=== PATIENT | male | born 1965 | race Caucasian/White ===

== ENCOUNTER 2016-06-11 14:16 | Emergency (ER) | payer MEDICARE ==
[~2016-06-11] VITALS: Ht 182.8 cm; Wt 87.5 kg
[~2016-06-11 14:16] MED LIST: HYDR25T PO; HYDROCHLOROTHIA25 M1 PO; HYDROCODONE BIT1 T11 PO; KEFLEX500 MG PO; LISINOPRIL2.5 MG PO; METFORMIN500 MG PO; VICODIN 500 MG-1 TAB PO; ZOCOR20 MG PO
[2016-06-11] MEDS ORDERED: HYDROCODONE BIT1 T11 PO (16:36)
== END 2016-06-11 16:36 | disposition home or self-care (01) ==
LOC: ED 14:16
DX: M25.552 Pain in left hip (principal); F12.10 Cannabis abuse, uncomplicated; F17.200 Nicotine dependence, unspecified, uncomplicated; Z79.899 Other long term (current) drug therapy; Z88.0 Allergy status to penicillin

== ENCOUNTER 2017-02-18 09:23 | Inpatient (IN) | payer MEDICARE ==
[~2017-02-18] VITALS: Ht 182.8 cm; Wt 90.7 kg
[2017-02-18 09:30] VITALS: BP 153/98
[2017-02-18 10:12] LABS: BASO % 0.3 % (0.0-1.0); EOS # 0.1 10*3/uL (0.0-0.4); EOS % 0.9 % (1.0-4.0); HEMATOCRIT 49.5 % (42.0-52.0); HEMOGLOBIN 17.8 g/dl (14.0-18.0); LYMPH # 2.1 10*3/uL (1.3-4.4); LYMPH % 17.4 % (27.0-41.0); MEAN CELL VOLUME 84.3 fl (80.0-94.0); MEAN CORPUSCULAR HGB 30.3 pg (27.0-31.0); MEAN PLATELET VOLUME 9.8 fl (9.6-12.3); MONO # 0.8 10*3/uL (0.1-1.0); MONO % 6.6 % (3.0-9.0); NEUT # 8.9 10*3/uL (2.3-7.9); NEUT % 74.2 % (47.0-73.0); PLATELET COUNT AUTOMATED 336 10*3/uL (130-400); RED BLOOD COUNT 5.87 10*6/uL (4.50-5.90); RED CELL DISTRI WIDTH 12.9 % (0-14.5)
--- NOTE | 2017-02-18 10:14 | NUR ---
UNABLE TO ACCESS PYXIS AT THIS TIME.
[2017-02-18 10:22] LABS: ACT PARTIAL THROMBO TIME 23.8 SECONDS (20.8-31.5)
[2017-02-18 10:28] LABS: ALBUMIN 4.2 gm/dl (3.1-4.5); ALKALINE PHOSPHATASE 98 U/L (45-117); BUN 17 mg/dl (7-24); CHLORIDE 85 mmol/L (98-107); CPK 60 U/L (39-308); CREATININE 0.87 mg/dL (0.70-1.30); LIPASE 160 U/L (73-393); MAGNESIUM 2.2 mg/dL (1.5-2.1); POTASSIUM 3.4 mmol/L (3.5-5.1); SGOT/AST 17 IU/L (3-35); SGPT/ALT 30 U/L (12-78); SODIUM 125 mmol/L (136-145); TOTAL PROTEIN 8.5 gm/dL (6.4-8.2)
[2017-02-18 10:29] LABS: CKMB < 0.5 ng/ml (0.5-3.6); TROPONIN I < 0.015 ng/ml (<0.045)
[2017-02-18 12:00] VITALS: BP 135/81
[2017-02-18 13:27] LABS: BILIRUBIN NEGATIVE (NEGATIVE); BLOOD NEGATIVE (NEGATIVE); CLARITY CLEAR (CLEAR); COLOR YELLOW (YELLOW); GLUCOSE NEGATIVE (NEGATIVE); KETONE 1+ (NEGATIVE); LEUKO ESTERASE NEGATIVE (NEGATIVE); NITRITE NEGATIVE (NEGATIVE); PH 6.5 (5.0-9.0)
[2017-02-18 13:40] LABS: EPITHELIAL CELLS 0-2; RBC 0-2 rbc/hpf (0-2)
[2017-02-18 16:16] VITALS: BP 142/76
[2017-02-18 17:55] LABS: BUN 16 mg/dl (7-24); CHLORIDE 94 mmol/L (98-107); CREATININE 1.11 mg/dL (0.70-1.30); POTASSIUM 3.2 mmol/L (3.5-5.1); SODIUM 135 mmol/L (136-145)
--- NOTE | 2017-02-18 19:19 | NUR ---
PATIENT LEFT THE UNIT TO SMOKE A CIGARETTE. STAFF NURSE EXPLAINED THAT HE CANNOT LEAVE THE UNIT. PHYSICIAN NOTIFIED. SEE NEW ORDERS FOR INHALER/NICODERM PATCH.
--- NOTE | 2017-02-18 19:43 | NUR ---
24 HR chart check completed.
[2017-02-18 20:00] VITALS: BP 135/81
--- NOTE | 2017-02-18 22:10 | NUR ---
ZOFRAN GIVEN FOR C/O N/V. WILL MONITOR.
--- NOTE | 2017-02-18 23:00 | NUR ---
ARNALDO EFFECTIVE. PATIENT ASLEEP.
[2017-02-19] VITALS: BP 102/51
[2017-02-19 07:02] LABS: BASO # 0.1 10*3/uL (0.0-0.1); BASO % 0.6 % (0.0-1.0); EOS # 0.1 10*3/uL (0.0-0.4); EOS % 1.4 % (1.0-4.0); HEMOGLOBIN 16.2 g/dl (14.0-18.0); LYMPH # 2.9 10*3/uL (1.3-4.4); LYMPH % 30.4 % (27.0-41.0); MEAN CORPUSCULAR HGB 30.1 pg (27.0-31.0); MEAN CORPUSCULAR HGB CONC 33.8 g/dl (33.0-37.0); MEAN PLATELET VOLUME 9.7 fl (9.6-12.3); MONO # 0.9 10*3/uL (0.1-1.0); MONO % 9.5 % (3.0-9.0); NEUT # 5.4 10*3/uL (2.3-7.9); NEUT % 57.2 % (47.0-73.0); PLATELET COUNT AUTOMATED 290 10*3/uL (130-400); RED BLOOD COUNT 5.38 10*6/uL (4.50-5.90); RED CELL DISTRI WIDTH 13.2 % (0-14.5); WHITE BLOOD COUNT 9.4 10*3/uL (4.8-10.8)
[2017-02-19 07:04] LABS: MEAN CELL VOLUME 89.2 fl (80.0-94.0)
--- NOTE | 2017-02-19 07:07 | NUR ---
ZOFRAN GIVEN FOR NAUSEA. WILL MONITOR.
[2017-02-19 07:38] LABS: BUN 18 mg/dl (7-24); CHLORIDE 96 mmol/L (98-107); CHOLESTEROL 141 mg/dL (<200); CREATININE 0.87 mg/dL (0.70-1.30); HDL CHOLESTEROL 26 mg/dl (40-60); LDL CHOLESTEROL 78 mg/dL (9-159); MAGNESIUM 2.5 mg/dL (1.5-2.1); PHOSPHOROUS 2.8 mg/dL (2.5-4.9); POTASSIUM 3.7 mmol/L (3.5-5.1); SODIUM 136 mmol/L (136-145); TRIGLYCERIDES 183 mg/dl (<150); VLDL CHOLESTEROL 37 mg/dL (6-40)
[2017-02-19 08:00] VITALS: BP 129/73
[2017-02-19 08:13] LABS: VITAMIN D, 25-HYDROXY 19.7 ng/mL (30-100)
--- NOTE | 2017-02-19 11:25 | NUR ---
patient's call light on, but no one in room. patient's iv beeping but unhooked from patient and laying on bed. found patient wandering the halls. informed him he cannot unhook IV. he stated it was annoying him and he wanted away from the beeping. instructed him once again to not unhook iv from himself.
[2017-02-19 12:00] VITALS: BP 152/87
[2017-02-19 16:00] VITALS: BP 123/64
[2017-02-19 20:00] VITALS: BP 136/80
[2017-02-20] VITALS: BP 130/79
--- NOTE | 2017-02-20 04:02 | NUR ---
PT ASLEEP IN BED AT THIS TIME. RESPIRATIONS EASY, NO S/S OF DISTRESS NOTED. WILL MONITOR.
[2017-02-20 07:01] LABS: BUN 15 mg/dl (7-24); CHLORIDE 97 mmol/L (98-107); CREATININE 0.77 mg/dL (0.70-1.30); POTASSIUM 3.9 mmol/L (3.5-5.1); SODIUM 134 mmol/L (136-145)
[2017-02-20 08:00] VITALS: BP 136/88
--- NOTE | 2017-02-20 09:29 | NUR ---
Farmer Vegetable in to talk to patient. Patient states lives at home alone with alone. There are few steps in the home. Physician: deuce kwong [facility] Home health services: none Patient's level of ADLs: INDEPENDENT Patient has working utilities: all working DME: none Follow-up physician's appointment after d/c: will be made by hospitalist nurse director upon discharge Does patient want to access PORTAL?: no Discharge plan discussed with patient, patient lives at home alone, states he gets around fine patient states he will be going home and denies any home needs. SOTERO LEMA
[2017-02-20] MEDS ORDERED: ZOFRAN ODT4 MG SL (10:03)
--- NOTE | 2017-02-20 11:13 | NUR ---
PT LEFT AMA, WITHOUT SIGNING PAPERWORK. PT WAS TO BE DISCHARGED AND COULDN'T WAIT FOR DC ORDER HIS RIDE WAS HERE AND PT. HAD TO LEAVE.
== END 2017-02-20 11:13 | disposition left against medical advice (07) | DRG 641 ==
LOC: ED 09:23 → EDHOLD 14:57 → 4E 14:57
PROVIDERS: Emergency Medicine; Internal Medicine; ADMIT Internal Medicine
DX: E87.1 Hypo-osmolality and hyponatremia (principal); E86.0 Dehydration; E11.65 Type 2 diabetes mellitus with hyperglycemia; I10 Essential (primary) hypertension; E78.5 Hyperlipidemia, unspecified; K21.9 Gastro-esophageal reflux disease without esophagitis; D72.825 Bandemia; E66.9 Obesity, unspecified; E87.6 Hypokalemia; E83.41 Hypermagnesemia; Z53.21 Procedure and treatment not carried out due to patient leaving prior to being seen by health care provider; Z88.0 Allergy status to penicillin; Z79.84 Long term (current) use of oral hypoglycemic drugs; Z79.899 Other long term (current) drug therapy; Z72.0 Tobacco use; Z71.6 Tobacco abuse counseling; Z68.27 Body mass index [BMI] 27.0-27.9, adult; Z90.49 Acquired absence of other specified parts of digestive tract; Z83.3 Family history of diabetes mellitus; Z80.9 Family history of malignant neoplasm, unspecified

== ENCOUNTER 2017-06-18 09:30 | Emergency (ER) | payer MEDICARE ==
[~2017-06-18] VITALS: Ht 182.8 cm; Wt 99.8 kg
[~2017-06-18 09:30] MED LIST changes: +ZOFRAN ODT4 MG SL
[2017-06-18] MEDS ORDERED: GLIPIZIDE10 M2 PO (09:36)
[2017-06-18 10:02] LABS: BASO # 0.1 10*3/uL (0.0-0.1); BASO % 0.4 % (0.0-1.0); EOS # 0.1 10*3/uL (0.0-0.4); EOS % 0.7 % (1.0-4.0); HEMATOCRIT 48.7 % (42.0-52.0); HEMOGLOBIN 17.2 g/dl (14.0-18.0); LYMPH % 17.7 % (27.0-41.0); MEAN CELL VOLUME 85.4 fl (80.0-94.0); MEAN CORPUSCULAR HGB 30.2 pg (27.0-31.0); MEAN CORPUSCULAR HGB CONC 35.3 g/dl (33.0-37.0); MONO # 0.7 10*3/uL (0.1-1.0); MONO % 6.3 % (3.0-9.0); NEUT # 8.4 10*3/uL (2.3-7.9); NEUT % 74.3 % (47.0-73.0); PLATELET COUNT AUTOMATED 288 10*3/uL (130-400); RED CELL DISTRI WIDTH 12.8 % (0-14.5); WHITE BLOOD COUNT 11.4 10*3/uL (4.8-10.8)
[2017-06-18 10:16] LABS: ALBUMIN 4.3 gm/dl (3.1-4.5); ALKALINE PHOSPHATASE 86 U/L (45-117); BUN 15 mg/dl (7-24); CHLORIDE 92 mmol/L (98-107); LIPASE 128 U/L (73-393); POTASSIUM 3.8 mmol/L (3.5-5.1); SGOT/AST 14 IU/L (3-35); SGPT/ALT 26 U/L (12-78); SODIUM 131 mmol/L (136-145); TOTAL PROTEIN 8.3 gm/dL (6.4-8.2)
[2017-06-18] MEDS ORDERED: ZOFRAN ODT4 MG SL (11:45)
[2017-06-18] MEDS ORDERED: LOMOTIL 2.5-0.1 EACH PO (11:46)
== END 2017-06-18 12:17 | disposition home or self-care (01) ==
LOC: ED 09:30
PROVIDERS: Physician Assistant
DX: K52.9 Noninfective gastroenteritis and colitis, unspecified (principal); E11.9 Type 2 diabetes mellitus without complications; F17.200 Nicotine dependence, unspecified, uncomplicated; Z90.49 Acquired absence of other specified parts of digestive tract; Z88.0 Allergy status to penicillin; Z79.899 Other long term (current) drug therapy; Z90.89 Acquired absence of other organs